=== PATIENT | female | born 1995 | race Caucasian/White ===

== ENCOUNTER 2020-12-09 13:05 | Emergency (ER) | payer OTHER, SELFPAY ==
[2020-12-09 13:12] VITALS: BP 129/83; PULSE 124; RESP 14; TEMP 36.4; O2SAT 100
--- NOTE | 2020-12-09 14:04 | ED.FEMALEGU ---
HPI - Female Genitourinary General Chief complaint: Urogenital-Female <Zandra Shin PA-C - Last Filed: 12/09/20 16:48> Stated complaint: hemorroids and genital sores <Zandra Shin PA-C - Last Filed: 12/09/20 16:48> Time Seen by Provider: 12/09/20 13:17 <CAPRI Cespedes Last Filed: 12/09/20 16:48> Source: patient <CAPRI Cespedes Last Filed: 12/09/20 16:48> Mode of arrival: ambulatory <CAPRI Cespedes Last Filed: 12/09/20 16:48> Limitations: no limitations <CAPRI Cespedes Last Filed: 12/09/20 16:48> History of Present Illness HPI Narrative: This is a 25 year old female that presents to the ER for vaginal pain. Reports sores in the vagina that have been present for about the last 4 days. Does report some vaginal discharge and irritation with urination. Also reports hemorrhoids that have been painful. Reports she has history of constipation. Did try to take a laxative once without relief. Has tried OTC treatment with little relief. Denies fever, abdominal pain, vomiting, or hematochezia. <CAPRI Cespedes Last Filed: 12/09/20 16:48> Related Data Home medications: Home Medications Medication Instructions Recorded Confirmed medroxyprogesterone [Depo-Provera mg IM 12/09/20 Contraceptive] <CAPRI Cespedes Last Filed: 12/09/20 16:48> Allergies/Adverse reactions: Allergies Allergy/AdvReac Type Severity Reaction Status Date / Time ciprofloxacin Allergy Unknown Itching Verified 12/09/20 13:21 <CAPRI Cespedes Last Filed: 12/09/20 16:48> Review of Systems Review of Systems: Narrative: CONSTITUTIONAL: Denies fever GASTROINTESTINAL: Denies abdominal pain, nausea, vomiting GENITOURINARY: Reports dysuria. Denies hematuria. <CAPRI Cespedes Last Filed: 12/09/20 16:48> All systems reviewed & are unremarkable except as noted in HPI and below <Zandra Shin PA-C - Last Filed: 12/09/20 16:48> PMFSH Family History Family History: Family History (Updated 06/20/14 @ 07:13 by DOCTOR UNKNOWN) Grandparent Family history of elevated blood lipids Family history of coronary artery disease Mother Family history of liver disease Other Diabetes mellitus <Zandra Shin PA-C - Last Filed: 12/09/20 16:48> Social History Social History: Social History Smoking status: Never smoker Second hand tobacco smoke exposure: No Alcohol intake: current <Zandra Shin PA-C - Last Filed: 12/09/20 16:48> Exam Narrative: Exam Narrative: GENERAL: Well-appearing, well-nourished, and in no acute distress. HEAD: Normocephalic, atraumatic. EYES: PERRLA and EOMI. ENT: Nares clear, no rhinorrhea or epistaxis. Mucous membranes moist. Oropharynx without tonsillar hypertrophy exudate or other lesions. Bilateral TMs pearly malone non-bulging NECK: Supple. No adenopathy or masses. No carotid bruits or JVD CHEST: Clear to auscultation. No respiratory distress. No wheezes rales or rhonchi HEART: Regular rate and rhythm. No murmur heard. Normal peripheral pulses. ABDOMEN: Soft, nontender, nondistended, normal active bowel sounds. EXTREMITIES: Normal range of motion. No edema. SKIN: Warm, dry, no rash. NEURO: No focal deficits. Alert and oriented x3. PSYCH: Normal mood and affect PELVIC: Ulceration on an erythematous base present at the vaginal introitus. Moderate amount of white/yellow discharge in the vaginal vault. No CMT RECTAL: Several non-thrombosed external hemorrhoids, no active bleeding <Zandra Shin PA-C - Last Filed: 12/09/20 16:48> Course Vital Signs Vital signs: Vital Signs Temperature 97.6 F 12/09/20 13:12 Pulse Rate 124 H 12/09/20 13:12 Respiratory Rate 14 12/09/20 13:12 Blood Pressure 129/83 12/09/20 13:12 Pulse Oximetry 100 12/09/20 13:12 Temperature 97.6 F 12/09/20 13:12 Pulse Rate 98 12/09/20 14:15 Respiratory Rate 18 12/09/20 14:15
[2020-12-09 14:15] VITALS: BP 130/80; PULSE 98; RESP 18; O2SAT 99
[2020-12-09 15:06] LABS: Basophils Percent Auto 0.2 % (0.2-1.2); Eosinophils Percent Auto 0.2 % (0-4.4); Hematocrit 44.5 % (37.0-47.0); Immature Granulocyte Absolute 0.02 K/mm3 (0.00-0.031); Immature Granulocyte Percent A 0.4 % (0-0.5); Lymphocytes Absolute Auto 1.53 K/mm3 (0.9-3.2); Lymphocytes Percent Auto 32.7 % (18.3-44.2); Mean Corpuscular HGB Conc 33.7 g/dl (32-36); Mean Corpuscular Hemoglobin 31.1 pg (26-34); Mean Corpuscular Volume 92.3 fl (80-100); Mean Platelet Volume 10.3 fl (7.4-10.4); Monocytes Absolute Auto 0.5 K/mm3 (0.1-0.6); Monocytes Percent Auto 10.3 % (2.6-8.5); Neutrophils Absolute Auto 2.6 K/mm3 (1.3-6.7); Neutrophils Percent Auto 56.2 % (45.5-73.1); Platelet Count Result 161 k/mm3 (150-375); Red Blood Count 4.82 M/mm3 (4.2-5.4); Red Cell Distribution Width 12.8 % (11.5-14.5); White Blood Count 4.7 K/mm3 (4.5-10.0)
[2020-12-09 15:10] LABS: Add Urine Microscopic? YES; Appearance Urine Clear (Clear); Bacteria Urine Trace /hpf; Bilirubin Urine Negative (Negative); Blood Urine Negative (Negative); Color Urine Yellow (Yellow); Glucose Urine UA Negative (Negative); Ketones Urine Negative (Negative); Leukocyte Esterase Ur Negative LEU/UL (Negative); Mucus Urine Heavy /lpf; Nitrate Urine Negative (Negative); Protein Urine 1+ mg/dL (Negative); Urobilinogen Urine Negative mg/dL (<2.0); WBC Urine 0-3 /hpf
[2020-12-09 15:16] LABS: Anion Gap 10 mmol/L (8-16); Blood Urea Nitrogen 11 mg/dL (7-17); Calcium 9.3 mg/dL (8.4-10.2); Carbon Dioxide 26 mmol/L (22-30); Chloride 106 mmol/L (98-107); Estimated CRCL calculation 107 ml/min; Estimated Glomerular Filt Rate > 60; Glucose 88 mg/dL (65-105); Potassium 3.5 mmol/L (3.4-5.0); Sodium 142 mmol/L (137-145)
[2020-12-09] MEDS: cefTRIAXone 250 MG VIAL 500 MG IM (17:06)
[2020-12-09] MEDS: LIDOCAINE HCL 1% LOCAL INJ 20 ML VIAL (17:07)
== END 2020-12-09 17:16 | disposition home or self-care (01) ==
PROVIDERS: Physician Assistant; Emergency Provider General Practice
DX: A60.04 Herpesviral vulvovaginitis (principal); K64.9 Unspecified hemorrhoids
CPT/HCPCS: 36415; 80048; 81001; 81025; 85025; 87070; 87140; 87255; 87491; 87591; 87808; 96372; 99284; J0696

== ENCOUNTER 2021-03-31 13:46 | Emergency (ER) | payer OTHER, SELFPAY ==
[2021-03-31 13:51] VITALS: BP 136/91; PULSE 93; RESP 18; TEMP 36.1; O2SAT 100
[2021-03-31 14:02] LABS: Basophils Percent Auto 0.4 % (0.2-1.2); Eosinophils Absolute Auto 0.1 K/mm3 (0-0.3); Eosinophils Percent Auto 0.8 % (0-4.4); Hematocrit 43.5 % (37.0-47.0); Hemoglobin 14.3 g/dL (12.0-15.0); Immature Granulocyte Absolute 0.02 K/mm3 (0.00-0.031); Immature Granulocyte Percent A 0.3 % (0-0.5); Lymphocytes Absolute Auto 2.84 K/mm3 (0.9-3.2); Lymphocytes Percent Auto 38.5 % (18.3-44.2); Mean Corpuscular HGB Conc 32.9 g/dl (32-36); Mean Corpuscular Hemoglobin 31.6 pg (26-34); Mean Platelet Volume 10.2 fl (7.4-10.4); Monocytes Absolute Auto 0.5 K/mm3 (0.1-0.6); Monocytes Percent Auto 7.2 % (2.6-8.5); Neutrophils Absolute Auto 3.9 K/mm3 (1.3-6.7); Neutrophils Percent Auto 52.8 % (45.5-73.1); Platelet Count Result 225 k/mm3 (150-375); Red Blood Count 4.53 M/mm3 (4.2-5.4); Red Cell Distribution Width 12.4 % (11.5-14.5); White Blood Count 7.4 K/mm3 (4.5-10.0)
[2021-03-31 14:18] LABS: Alanine Aminotransferase 12 U/L (4-35); Albumin Level 4.8 g/dL (3.5-5.1); Alkaline Phosphatase 66 U/L (38-126); Anion Gap 11 mmol/L (8-16); Aspartate Amino Transferase 22 U/L (14-36); Bilirubin,Total 0.6 mg/dL (0.2-1.3); Blood Urea Nitrogen 6 mg/dL (7-17); Calcium 9.9 mg/dL (8.4-10.2); Carbon Dioxide 24 mmol/L (22-30); Chloride 107 mmol/L (98-107); Estimated Glomerular Filt Rate > 60; Glucose 90 mg/dL (65-105); Lipase 88 U/L (23-300); Potassium 3.9 mmol/L (3.4-5.0); Sodium 142 mmol/L (137-145)
[2021-03-31 14:42] LABS: Add Urine Microscopic? NO; Appearance Urine Clear (Clear); Bilirubin Urine Negative (Negative); Blood Urine Negative (Negative); Color Urine Colorless (Yellow); Glucose Urine UA Negative (Negative); Ketones Urine Negative (Negative); Leukocyte Esterase Ur Negative LEU/UL (Negative); Nitrate Urine Negative (Negative); Protein Urine Negative (Negative); Urobilinogen Urine Negative mg/dL (<2.0)
[2021-03-31 14:44] LABS: Specific Grav Ur 1.004 (1.001-1.035)
--- NOTE | 2021-03-31 15:25 | ED.ABDPAIN ---
HPI - Abdominal Pain General Chief Complaint: Abdominal Pain Stated Complaint: ?Gallbladder attack Time Seen by Provider: 03/31/21 14:15 Source: patient, family and RN notes reviewed Mode of arrival: ambulatory Limitations: no limitations History of Present Illness HPI narrative: Patient is a 26-year-old female who presents with 3 weeks duration of abdominal discomfort that comes and goes that is located in the epigastrium sometimes referred to the back described as a burning pain nothing is made it better or worse recently been seen in the emergency department of an outside hospital for this same reason unremarkable evaluation to include blood work was given Bentyl discharged home as well as MiraLAX due to some constipation which has resolved patient followed up with primary care doctor afterwards who discontinued the Bentyl patient denies any vomiting but does note nausea denies diarrhea rectal bleeding or melena presents in no distress at this time notes minimal discomfort Related Data Home Medications Medication Instructions Recorded Confirmed medroxyprogesterone [Depo-Provera mg IM 12/09/20 Contraceptive] Allergies Allergy/AdvReac Type Severity Reaction Status Date / Time ciprofloxacin Allergy Unknown Itching Verified 12/09/20 13:21 Review of Systems Review of Systems: All systems reviewed & are unremarkable except as noted in HPI and below PMFSH Family History Family History (Updated 06/20/14 @ 07:13 by DOCTOR UNKNOWN) Grandparent Family history of elevated blood lipids Family history of coronary artery disease Mother Family history of liver disease Other Diabetes mellitus Social History Social History Smoking status: Never smoker Second hand tobacco smoke exposure: No Alcohol intake: current Exam Narrative: Exam Narrative: GENERAL: Well-appearing, well-nourished, and in no acute distress. HEAD: Normocephalic, atraumatic. EYES: PERRLA and EOMI. ENT: Nares clear, no rhinorrhea or epistaxis. Mucous membranes moist. CHEST: Clear to auscultation. No respiratory distress. No wheezes rales or rhonchi HEART: Regular rate and rhythm. No murmur heard. Normal peripheral pulses. ABDOMEN: Soft, nontender, nondistended EXTREMITIES: Normal range of motion. No edema. SKIN: Warm, dry, no rash. NEURO: No focal deficits. Alert and oriented x3. Cranial nerves II through XII grossly intact PSYCH: Normal mood and affect. Course Course Emergency Course: Patient evaluated in the emergency department was hydrated given medications is afebrile nontoxic-appearing no distress no high risk changes in the blood work will be referred to GI for further evaluation and possible discussion of upper endoscopic he is this is felt to be likely reflux or gastritis related will be placed on a PPI in the interim and given instructions on diet restrictions and provided with reasons to return ABCs and vital signs intact and stable Vital Signs Vital signs: Vital Signs Temperature 97.0 F L 03/31/21 13:51 Pulse Rate 93 03/31/21 13:51 Respiratory Rate 18 03/31/21 13:51 Blood Pressure 136/91 H 03/31/21 13:51 Pulse Oximetry 100 03/31/21 13:51 Temperature 97.0 F L 03/31/21 13:51 Pulse Rate 93 03/31/21 13:51 Respiratory Rate 18 03/31/21 13:51 Blood Pressure 136/91 H 03/31/21 13:51 Pulse Oximetry 100 03/31/21 13:51 MDM - Abdominal Pain MDM Narrative Medical decision making narrative: Patient evaluated in the emergency department no high risk changes in the evaluation minimal tenderness on exam. Patient will be referred to GI for further evaluation feels comfortable with this plan Differential Diagnosis Differential diagnosis: Likely abdominal pain, constipation, gastroenteritis and other (Gastritis or peptic ulcer) Lab Data Result diagrams: 03/31/21 13:56 03/31/21 13:56 Labs: Lab Results 03/31/21
[2021-03-31] MEDS: PANTOPRAZOLE SODIUM IV 40 MG VIAL IV PUSH (15:33)
[2021-03-31] MEDS: LIDOCAINE HCL 2% VISC SOLN 15 ML UDC 20 ML PO (15:33)
[2021-03-31] MEDS: MAG HYDROX/AL HYDROX/SIMETH 30 ML UDC PO (15:33)
[2021-03-31] MEDS: SODIUM CHLORIDE 0.9% IV 1,000 ML 999 ML IV CONT (15:34)
[2021-03-31 16:32] VITALS: BP 111/74; PULSE 73; RESP 18; O2SAT 99
== END 2021-03-31 16:34 | disposition home or self-care (01) ==
PROVIDERS: Emergency Provider Emergency Medicine; PCP Internal Medicine
DX: R10.13 Epigastric pain (principal)
CPT/HCPCS: 36415; 80053; 81003; 81025; 83690; 85025; 96361; 96374; 99284; A9270; C9113; J7030